=== PATIENT | female | born 2000 | race Caucasian/White ===

== ENCOUNTER 2022-04-14 13:57 | Emergency (ER) | payer BC ==
[2022-04-14 14:46] LABS: INR-International Normal Ratio 0.9; PTT 25.3 sec (22.0-33.0); Prothrombin Time 9.8 sec (9.5-12.1)
[2022-04-14 14:53] LABS: ALT (SGPT) 15 U/L (8-55); AST (SGOT) 13 U/L (5-30); Alkaline Phosphatase 57 U/L (40-100); Anion Gap 14 mmol/L (10-20); BUN (Urea Nitrogen) 9 mg/dL (8.4-21.0); Bilirubin, Total 0.6 mg/dL (0.2-1.2); Calc. Creatinine Clearance 0 mL/min (70-130); Calcium 9.7 mg/dL (7.8-10.44); Carbon Dioxide 24 mmol/L (22-29); Chloride 106 mmol/L (98-107); Estimated GFR 107; Globulin 3.2 g/dL (2.4-3.5); Glucose 103 mg/dL (70-105); Lipase 14 U/L (8-78); Potassium 3.4 mmol/L (3.5-5.1); Protein, Total 8.2 g/dL (6.0-8.3); Sodium 141 mmol/L (136-145)
[2022-04-14 14:58] LABS: #Monocytes 0.3 10x3/uL (0.0-1.1); #Neutrophils 6.7 10x3/uL (1.5-8.4); %Basophils 0.2 % (0.0-2.0); %Eosinophils 0.2 % (0.0-6.0); %Lymphocytes 17.4 % (18.0-47.0); %Monocytes 3.9 % (0.0-10.0); %Neutrophils 77.9 % (40.0-75.0); Hemoglobin 13.8 g/dL (12.0-15.5); Mean Corpuscular HGB CONC 33.3 g/dL (32.0-36.0); Mean Corpuscular Hemoglobin 28.4 pg (27.0-33.0); Mean Corpuscular Volume 85.2 fl (81.6-98.3); Mean Platelet Volume 10.1 fl (7.4-10.4); Platelet Count 198 10x3/uL (150-450); RBC Distribution Width 12.1 % (11.5-14.5); Red Blood Cell (RBC) Count 4.86 10x6/uL (3.90-5.03); White Blood Cell (WBC) Count 8.6 10x3/uL (3.5-10.5)
[2022-04-14] MEDS ORDERED: Ondansetron PF 4 MG/2 ML Vial ONE (15:31)
[2022-04-14] MEDS ORDERED: Dicyclomine 20 MG TAB ONE ×2 (15:32→15:45)
[2022-04-14 23:12] LABS: Campy jejuni + coli by PCR Negative (Negative); STEC Shiga Toxin 1+2 Negative (Negative); Salmonella spp. by PCR Negative (Negative); Shigella spp + EIEC by PCR Negative (Negative)
== END 2022-04-14 16:53 | disposition home or self-care (01) ==
LOC: CSHERS 13:57
DX: K52.9 Noninfective gastroenteritis and colitis, unspecified (principal); K62.5 Hemorrhage of anus and rectum
CPT/HCPCS: 36415; 80053; 83605; 83690; 85025; 85610; 85730; 87505; 96374; J2405

== ENCOUNTER 2022-09-10 15:24 | Emergency (ER) | payer BC | END 2022-09-10 16:04 | disposition home or self-care (01) | LOC: CSHERS 15:24 | DX: B00.9 Herpesviral infection, unspecified (principal) | CPT/HCPCS: 99282 ==